=== PATIENT | female | born 1945 | race Caucasian/White ===

== ENCOUNTER 2018-02-25 11:19 | Emergency (ER) | payer OTHER ==
[~2018-02-25 11:19] MED LIST: AMLO2.5T PO; CHOL5000 PO; LEVO75TA3 PO; METO100T PO; METO50TA PO; TEMA15CA PO; TRIA37.53 PO; ZOLE5P IV
[2018-02-25 11:29] VITALS: BP 154/65; PULSE 80; RESP 18; TEMP 97.9; O2SAT 96
[2018-02-25] MEDS ORDERED: SODIUM CHLORIDE 0.9% FLUSH 10 ML FLUSH IVF PRN (11:45)
--- NOTE | 2018-02-25 11:53 | PD ---
HPI Chief Complaint: Edema Time Seen by Provider: 11:34 Travel History International Travel<30 days: No Contact w/Intl Traveler<30days: No Traveled to known affect area: No History of Present Illness HPI Patient is a 72-year-old female with history of MS and hypertension, presents the emergency room with complaints of lower extremity edema. Patient reports that she has been dealing with a rash for the past month, she was recently on a course of steroids for the whole month due to this rash. Patient reports that since she stopped taking steroids, she has noticed increased lower extremity edema. She did follow-up with primary care doctor who prescribed her spironolactone 25 mg for this lower extremity edema. Patient reports that the edema has progressed and has gotten worse, reports increased mild to moderate tightening to her lower extremities, reports increased calf tenderness. Patient denies any history of PE or DVT. Reports no shortness of breath or chest pain at this time. Denies any recent travels or trips. Denies any recent surgeries PFSH Past Medical History Arthritis: No Autoimmune Disease: Yes (MS) Cancer: No Cardiovascular Problems: Yes Endocrine: Yes Genitourinary: No Immune Disorder: No Musculoskeletal: Yes Neurologic: No Reproductive: No Respiratory: No Thyroid Disease: Yes ?: Not Past Surgical History Gynecologic Surgery: Yes (HYSTERECTOMY) Social History Tobacco Use: No Substance Use: No Allergies-Medications (Allergen,Severity, Reaction): Coded Allergies: No Known Allergies (Unverified , 05/24/17) Reported Meds & Prescriptions Reported Meds & Active Scripts Active Reported Ocrevus (Ocrelizumab) 300 Mg/10 Ml Vial Spironolactone 25 Mg Tab 25 Mg PO DAILY Vitamin D3 (Cholecalciferol) 5,000 Unit Cap 5,000 Units PO DAILY Temazepam 15 Mg Cap 15 Mg PO HS PRN Levothyroxine (Levothyroxine Sodium) 75 Mcg Tab 75 Mcg PO DAILY Metoprolol Tartrate 100 Mg Tab 100 Mg PO DAILY Review of Systems General / Constitutional: No: Fever Eyes: No: Visual changes HENT: No: Headaches Cardiovascular: No: Chest Pain or Discomfort, Palpitations, Irregular Rhythm, Diaphoresis, Syncope, Dyspnea on exertion Respiratory: No: Cough, Shortness of Breath Gastrointestinal: No: Abdominal Pain Genitourinary: No: Dysuria Musculoskeletal: Positive: Edema, No: Pain Skin: No Rash Neurologic: No: Weakness Psychiatric: No: Depression Endocrine: No: Polydipsia Hematologic/Lymphatic: No: Easy Bruising Physical Exam Narrative GENERAL: NAD SKIN: Focused skin assessment warm/dry. HEAD: Atraumatic. Normocephalic. EYES: Pupils equal and round. No scleral icterus. No injection or drainage. ENT: No nasal bleeding or discharge. Mucous membranes pink and moist. NECK: Trachea midline. No JVD. CARDIOVASCULAR: Regular rate and rhythm. No murmur appreciated. RESPIRATORY: No accessory muscle use. Clear to auscultation. Breath sounds equal bilaterally. GASTROINTESTINAL: Abdomen soft, non-tender, nondistended. Hepatic and splenic margins not palpable. MUSCULOSKELETAL: No obvious deformities. No clubbing. No cyanosis. +2pitting edema b/l with b/l calf tenderness NEUROLOGICAL: Awake and alert. No obvious cranial nerve deficits. Motor grossly within normal limits. Normal speech. PSYCHIATRIC: Appropriate mood and affect; insight and judgment normal. Data Data Last Documented VS Vital Signs Date Time Temp Pulse Resp B/P (MAP) Pulse Ox O2 Delivery O2 Flow Rate FiO2 02/25/18 13:01 67 18 142/70 (94) 96 Room Air 02/25/18 11:29 97.9 Orders Orders Complete Blood Count With Diff (02/25/18 11:44) Comprehensive Metabolic Panel (02/25/18 11:44) B-Type Natriuretic Peptide (02/25/18 11:44) Act Partial Throm Time (Ptt) (02/25/18 11:44) Prothrombin Time / Inr (Pt) (02/25/18 11:44) Magnesium (Mg) (02/25/18 11:44) Iv Access Insert/Monitor (02/25/18 11:44) Ecg Monitoring (02/25/18 11:44) Oximetry (02/25/18 11:44) Sodium Chloride 0.9% Flush (Ns Flush) (02/25/18 11:45) Us Leg Venous Doppler Bilat (02/25/18 ) Labs Laboratory Tests Test 02/25/18 11:50 White Blood Count 11.7 TH/MM3 Red Blood Count 4.26 MIL/MM3 Hemoglobin 11.7 GM/DL Hematocrit 36.1 % Mean Corpuscular Volume 84.8 FL Mean Corpuscular Hemoglobin 27.5 PG Mean Corpuscular Hemoglobin Concent 32.5 % Red Cell Distribution Width 19.1 % Platelet Count 640 TH/MM3 Mean Platelet Volume 9.8 FL Neutrophils (%) (Auto) 72.5 % Lymphocytes (%) (Auto) 7.2 % Monocytes (%) (Auto) 7.1 % Eosinophils (%) (Auto) 9.9 % Basophils (%) (Auto) 3.3 % Neutrophils # (Auto) 8.5 TH/MM3 Lymphocytes # (Auto) 0.8 TH/MM3 Monocytes # (Auto) 0.8 TH/MM3 Eosinophils # (Auto) 1.2 TH/MM3 Basophils # (Auto) 0.4 TH/MM3 CBC Comment DIFF FINAL Differential Comment Prothrombin Time 10.1 SEC Prothromb Time International Ratio 1.0 RATIO Activated Partial Thromboplast Time 28.1 SEC Blood Urea Nitrogen 9 MG/DL Creatinine 0.76 MG/DL Random Glucose 110 MG/DL Total Protein 6.9 GM/DL Albumin 3.4 GM/DL Calcium Level 8.9 MG/DL Magnesium Level 2.4 MG/DL Alkaline Phosphatase 80 U/L Aspartate Amino Transf (AST/SGOT) 15 U/L Alanine Aminotransferase (ALT/SGPT) 20 U/L Total Bilirubin 0.4 MG/DL Sodium Level 140 MEQ/L Potassium Level 3.6 MEQ/L Chloride Level 109 MEQ/L Carbon Dioxide Level 26.6 MEQ/L Anion Gap 4 MEQ/L Estimat Glomerular Filtration Rate 75 ML/MIN B-Type Natriuretic Peptide 90 PG/ML MDM Medical Decision Making Medical Screen Exam Complete: Yes Emergency Medical Condition: Yes Medical Record Reviewed: Yes Interpretation(s) Vital Signs Date Time Temp Pulse Resp B/P (MAP) Pulse Ox O2 Delivery O2 Flow Rate FiO2 02/25/18 11:29 97.9 80 18 154/65 (94) 96 Differential Diagnosis dvt, electrolyte abnormality, chf, steroid induced edema Narrative Course 72-year-old female who presents the emergency room complaints of lower extremity edema for the past 2 weeks. During the course of the patients emergency department visit, the patients history, examination, and differential diagnosis were reviewed with the patient. The patient was placed on a traffic monitor specialist with oximetry and frequent blood pressure monitoring. The patient had an IV access obtained and blood work sent for analysis. The patients laboratory studies were reviewed and remarkable for Laboratory Tests Test 02/25/18 11:50 White Blood Count 11.7 TH/MM3 (4.0-11.0) Red Blood Count 4.26 MIL/MM3 (4.00-5.30) Hemoglobin 11.7 GM/DL (11.6-15.3) Hematocrit 36.1 % (35.0-46.0) Mean Corpuscular Volume 84.8 FL (80.0-100.0) Mean Corpuscular Hemoglobin 27.5 PG (27.0-34.0) Mean Corpuscular Hemoglobin Concent 32.5 % (32.0-36.0) Red Cell Distribution Width 19.1 % (11.6-17.2) Platelet Count 640 TH/MM3 (150-450) Mean Platelet Volume 9.8 FL (7.0-11.0) Neutrophils (%) (Auto) 72.5 % (16.0-70.0) Lymphocytes (%) (Auto) 7.2 % (9.0-44.0) Monocytes (%) (Auto) 7.1 % (0.0-8.0) Eosinophils (%) (Auto) 9.9 % (0.0-4.0) Basophils (%) (Auto) 3.3 % (0.0-2.0) Neutrophils # (Auto) 8.5 TH/MM3 (1.8-7.7) Lymphocytes # (Auto) 0.8 TH/MM3 (1.0-4.8) Monocytes # (Auto) 0.8 TH/MM3 (0-0.9) Eosinophils # (Auto) 1.2 TH/MM3 (0-0.4) Basophils # (Auto) 0.4 TH/MM3 (0-0.2) CBC Comment DIFF FINAL Differential Comment Prothrombin Time 10.1 SEC (9.8-11.6) Prothromb Time International Ratio 1.0 RATIO Activated Partial Thromboplast Time 28.1 SEC (24.3-30.1) Blood Urea Nitrogen 9 MG/DL (7-18) Creatinine 0.76 MG/DL (0.50-1.00) Random Glucose 110 MG/DL (74-106) Total Protein 6.9 GM/DL (6.4-8.2) Albumin 3.4 GM/DL (3.4-5.0) Calcium Level 8.9 MG/DL (8.5-10.1) Magnesium Level 2.4 MG/DL (1.5-2.5) Alkaline Phosphatase 80 U/L (45-117) Aspartate Amino Transf (AST/SGOT) 15 U/L (15-37) Alanine Aminotransferase (ALT/SGPT) 20 U/L (10-53) Total Bilirubin 0.4 MG/DL (0.2-1.0) Sodium Level 140 MEQ/L (136-145) Potassium Level 3.6 MEQ/L (3.5-5.1) Chloride Level 109 MEQ/L (98-107) Carbon Dioxide Level 26.6 MEQ/L (21.0-32.0) Anion Gap 4 MEQ/L (5-15) Estimat Glomerular Filtration Rate 75 ML/MIN (>89) B-Type Natriuretic Peptide 90 PG/ML (0-100) Radiology studies were reviewed and remarkable for Last Impressions Lower Extremity Ultrasound 02/25/18 0000 Signed Impressions: Service Date/Time: Sunday, February 25, 2018 12:35 - CONCLUSION: No DVT. Adrián Starr MD Labs reviewed, lower extremity ultrasound with no evidence of DVT. She does appear to have a popliteal fossa cyst/Thomas's cyst to right lower extremity. I encouraged patient to elevate her lower extremities to help decrease edema, discussed with her need to have repeat US in 1 week to evaluate for dvt if swelling is persistent. She does have follow up with her pcp this Tuesday, she will return to ER as needed Diagnosis Primary Impression: Bilateral lower extremity edema Patient Instructions: General Instructions Additional Instructions: Please provide patient with a copy of their lab work and studies at discharge* * Please follow up with your primary care doctor as scheduled Return to the ER if symptoms worsen or progress Return to the ER as needed Elevate your lower extremities above the heart to help decrease swelling Disposition: 01 DISCHARGE HOME Condition: Stable WyattMarta Feb 25, 2018 11:53
[2018-02-25 12:06] LABS: AUTOMATED NEUTROPHIL # 8.5 TH/MM3 (1.8-7.7); BASOPHIL # 0.4 TH/MM3 (0-0.2); BASOPHIL % 3.3 % (0.0-2.0); EOSINOPHIL # 1.2 TH/MM3 (0-0.4); EOSINOPHIL % 9.9 % (0.0-4.0); HEMATOCRIT 36.1 % (35.0-46.0); HEMOGLOBIN 11.7 GM/DL (11.6-15.3); LYMPH % 7.2 % (9.0-44.0); LYMPHOCYTE # 0.8 TH/MM3 (1.0-4.8); MEAN CELL VOLUME 84.8 FL (80.0-100.0); MEAN CORPUSCULAR HEMOGLOBIN 27.5 PG (27.0-34.0); MEAN CORPUSCULAR HGB CONC 32.5 % (32.0-36.0); MEAN PLATELET VOLUME 9.8 FL (7.0-11.0); MONO % 7.1 % (0.0-8.0); MONOCYTE # 0.8 TH/MM3 (0-0.9); NEUT % 72.5 % (16.0-70.0); PLATELET COUNT 640 TH/MM3 (150-450); RED BLOOD COUNT 4.26 MIL/MM3 (4.00-5.30); RED CELL DISTRIBUTION WIDTH 19.1 % (11.6-17.2); WHITE BLOOD COUNT 11.7 TH/MM3 (4.0-11.0)
[2018-02-25 12:09] LABS: CHLORIDE 109 MEQ/L (98-107); SODIUM (NA) 140 MEQ/L (136-145)
[2018-02-25] MEDS ORDERED: OCRE300V (12:09)
[2018-02-25] MEDS ORDERED: SPIR25TA PO (12:09)
[2018-02-25 12:13] LABS: ALBUMIN 3.4 GM/DL (3.4-5.0); BICARBONATE 26.6 MEQ/L (21.0-32.0); BLOOD UREA NITROGEN 9 MG/DL (7-18); CALCIUM 8.9 MG/DL (8.5-10.1); GLUCOSE,RANDOM 110 MG/DL (74-106); MAGNESIUM 2.4 MG/DL (1.5-2.5); PROTHROMBIN TIME - PATIENT 10.1 SEC (9.8-11.6)
[2018-02-25 12:16] LABS: ALT (GPT) 20 U/L (10-53); AST (GOT) 15 U/L (15-37); CREATININE 0.76 MG/DL (0.50-1.00); GLOMERULAR FILTRATION RATE 75 ML/MIN (>89)
[2018-02-25 12:18] LABS: TOTAL BILIRUBIN ADULT 0.4 MG/DL (0.2-1.0); TOTAL PROTEIN 6.9 GM/DL (6.4-8.2)
[2018-02-25 12:19] LABS: ALKALINE PHOSPHATASE 80 U/L (45-117)
[2018-02-25 13:01] VITALS: BP 142/70; PULSE 67; RESP 18; O2SAT 96
--- NOTE | 2018-02-25 13:07 | RADRPT ---
EXAM DATE/TIME: 02/25/2018 12:35 [facility] COMPARISON: No previous studies available for comparison. INDICATIONS : Bilateral leg swelling. MEDICAL HISTORY : Hypertension. Osteoporosis. Multiple sclerosis. Thyroid disease. SURGICAL HISTORY : Hysterectomy. ENCOUNTER: Subsequent ACUITY: 1 week PAIN SCORE: 6/10 LOCATION: Bilateral leg. TECHNIQUE: Venous ultrasound of the left and right leg was performed from the inguinal ligament to the proximal calf. Real-time, color Doppler and spectral tracing, compression and augmentation techniques were us ed. FINDINGS: RIGHT LEG: There is normal compressibility of the deep venous system from the inguinal region to the proximal ca lf. No echogenic clot is seen in the lumen of the common femoral, femoral, popliteal, and posterior tibial veins. There is a normal response of the venous system to proximal and distal augmentation an d respiration. There is a popliteal fossa cyst/Thomas's cyst measuring 4.2 x 2.2 x 1.7 cm. LEFT LEG: There is normal compressibility of the deep venous system from the inguinal region to the proximal ca lf. No echogenic clot is seen in the lumen of the common femoral, femoral, popliteal, and posterior tibial veins. There is a normal response of the venous system to proximal and distal augmentation an d respiration. CONCLUSION: No DVT. Adrián Starr MD on February 25, 2018 at 13:04 Board Certified Radiologist. This report was verified electronically.
[2018-02-25 13:53] VITALS: BP 140/69
== END 2018-02-25 13:55 | disposition home or self-care (01) ==
LOC: PHED 11:19
DX: R60.0 Localized edema (principal); G35 Multiple sclerosis; I10 Essential (primary) hypertension; E07.9 Disorder of thyroid, unspecified; M79.89 Other specified soft tissue disorders; Z79.899 Other long term (current) drug therapy
CPT/HCPCS: 80053; 83735; 83880; 85025; 85610; 85730; 93970; 99284